=== PATIENT | female | born 1985 | race Caucasian/White ===

== ENCOUNTER 2017-06-06 15:51 | Emergency (ER) | payer OTHER ==
[~2017-06-06] VITALS: Ht 149.9 cm; Wt 45.0 kg
[~2017-06-06 15:51] MED LIST: AMOXIL400 MG/5 M PO; BACTRIM DS1 TAB PO; CEPHALEXIN250 MG/51 PO; CORTISPORIN OTI10 ML AD; SULFAMETHOXAZOLE1 ML PO; ULTRAM50 MG PO
[2017-06-06] MEDS ORDERED: BACTRIM DS1 TAB PO (16:12)
[2017-06-06] MEDS ORDERED: CEPHALEXIN250 MG/51 PO (16:14)
[2017-06-06 16:19] VITALS: BP 120/78
== END 2017-06-06 16:19 | disposition home or self-care (01) | DRG 603 ==
LOC: ED 15:51
DX: L03.012 Cellulitis of left finger (principal)